=== PATIENT | female | born 1955 | race African-American/Black ===

== ENCOUNTER → 2021-03-24 | Outpatient (CLI) | payer BC | LOC: EDBD 13:25 → RAD 13:25 | DX: M47.817 Spondylosis without myelopathy or radiculopathy, lumbosacral region (principal); M43.16 Spondylolisthesis, lumbar region; D36.7 Benign neoplasm of other specified sites; M79.18 Myalgia, other site; M99.02 Segmental and somatic dysfunction of thoracic region ==